=== PATIENT | male | born 1990 | race Caucasian/White ===

== ENCOUNTER 2022-03-10 21:12 | Inpatient (IN) | payer BC, OTHER ==
[~2022-03-10] VITALS: Ht 175.3 cm; Wt 84.0 kg
[2022-03-10 22:40] LABS: HEMATOCRIT 43.7 % (42.0-52.0); HEMOGLOBIN 14.6 g/dl (13.5-17.5); MEAN CORPUSCULAR HEMOGLOBIN 29.7 pg (27.0-33.0); MEAN CORPUSCULAR HGB CONC 33.4 g/dl (32.0-36.5); PLATELET COUNT, AUTOMATED 319 10^3/uL (150-450); RED BLOOD COUNT 4.91 10^6/uL (4.30-6.10); WHITE BLOOD COUNT 10.1 10^3/uL (4.0-10.0)
[2022-03-10 23:04] LABS: ETHYL ALCOHOL (ETHANOL) 0.003 % (0.000-0.010)
[2022-03-10 23:05] LABS: ACETAMINOPHEN LEVEL < 2.0 UG/ML (10.0-20.0); ALBUMIN 3.6 G/DL (3.2-5.2); ALKALINE PHOSPHATASE 47 U/L (46-116); ALT/SGPT 18 U/L (7.0-40); AST/SGOT 20 U/L (<34); BILIRUBIN,DIRECT < 0.1 MG/DL (<0.4); BILIRUBIN,TOTAL 0.3 MG/DL (0.3-1.2); BLOOD UREA NITROGEN 11 MG/DL (9-23); CALCIUM LEVEL 8.7 MG/DL (8.5-10.1); CARBON DIOXIDE LEVEL 27 MMOL/L (20-31); CHLORIDE LEVEL 105 MMOL/L (98-107); CREATININE FOR GFR 0.91 MG/DL (0.70-1.30); GLOMERULAR FILTRATION RATE > 60.0 (>60); GLUCOSE, FASTING 111 MG/DL (60-100); POTASSIUM SERUM 3.7 MMOL/L (3.5-5.1); SALICYLATE LEVEL < 3.0 MG/DL (<30); SODIUM LEVEL 139 MMOL/L (136-145); TOTAL PROTEIN 6.5 G/DL (5.7-8.2)
[2022-03-10 23:10] LABS: THYROID STIMULATING HORMONE 1.628 uIU/ML (0.55-4.78)
[2022-03-10 23:16] LABS: RSV AMPLIFICATION NEGATIVE (NEGATIVE)
[2022-03-11 01:59] LABS: BARBITURATES URINE NEGATIVE (NEGATIVE); BENZODIAZEPINES URINE NEGATIVE (NEGATIVE); COCAINE METABOLITE URINE NEGATIVE (NEGATIVE); METHADONE URINE NEGATIVE (NEGATIVE); OPIATES URINE NEGATIVE (NEGATIVE); PHENCYCLIDINE URINE NEGATIVE (NEGATIVE)
[2022-03-11 02:01] LABS: AMPHETAMINES LEVEL URINE POSITIVE (NEGATIVE); CANNABINOIDS URINE POSITIVE (NEGATIVE)
[2022-03-11] MEDS ORDERED: FLUO10CA18 PO (06:44)
[2022-03-11] MEDS ORDERED: ADDE20CA3 PO (06:44)
[2022-03-11] MEDS ORDERED: HYDR50TA70 PO (06:44)
[2022-03-11] MEDS ORDERED: FLUO20CA22 PO (06:44)
[2022-03-11] MEDS ORDERED: ADDE1TAB20 PO (06:44)
[2022-03-11] MEDS ORDERED: HOME MED LIST COMPLETE! XX SCH (06:45)
[2022-03-11] MEDS ORDERED: traZODone 50 MG TAB PO PRN (15:35)
[2022-03-11] MEDS ORDERED: MAALOX 30 ML SUSP *UDC PO PRN (15:35)
[2022-03-11] MEDS ORDERED: MOM 30ML SUSPENSION UDC PO PRN (15:35)
[2022-03-11] MEDS ORDERED: ACETAMINOPHEN TAB 650MG DOSE (2X325MG) PO PRN (15:35)
[2022-03-11 17:59] VITALS: BP 119/71
[2022-03-12 06:33] VITALS: BP 109/69
[2022-03-12] MEDS: NICOTINE 21MG/24HR 1 EA TRANSDERMAL TD SCH (09:00)
[2022-03-12] MEDS: FLUoxetine 10 MG CAP PO SCH (11:36)
[2022-03-13 06:32] VITALS: BP 116/64
[2022-03-13] MEDS: FLUoxetine 10 MG CAP PO SCH (07:31)
[2022-03-13] MEDS: NICOTINE 21MG/24HR 1 EA TRANSDERMAL TD SCH (07:32)
[2022-03-13] MEDS ORDERED: HOME MED LIST COMPLETE! XX SCH (07:50)
== END 2022-03-13 15:00 | disposition home or self-care (01) | DRG 758 ==
LOC: EDBD 21:12 → M ED 21:12 → M ED INP 03-11 15:32 → M PSY 03-11 17:51
PROVIDERS: ADMIT Student in an Organized Health Care Education/Training Program; ATTEND Student in an Organized Health Care Education/Training Program
DX: F63.9 Impulse disorder, unspecified (principal); F32.A Depression, unspecified; F12.10 Cannabis abuse, uncomplicated; R45.851 Suicidal ideations; Z91.51 Personal history of suicidal behavior; Z63.0 Problems in relationship with spouse or partner; Z63.8 Other specified problems related to primary support group; Z20.822 Contact with and (suspected) exposure to COVID-19; F90.9 Attention-deficit hyperactivity disorder, unspecified type; F17.210 Nicotine dependence, cigarettes, uncomplicated